=== PATIENT | female | born 1970 | race Caucasian/White ===

== ENCOUNTER 2017-03-14 15:28 | Outpatient (CLI) | payer OTHER ==
[~2017-03-14 15:28] MED LIST: B12-ACTIVE1 MG; BAYER ASPIRIN E81 M1 PO; BENADRYL25 MG PO; CELEXA20 MG PO; CLONAZEPAM2 MG PO; COMBIVIR1 TAB PO; COZAAR25 MG PO; CRESTOR20 MG PO; CYCLOBENZAPRINE10 MG PO; ESTER-C500 M1 PO; GABAPENTIN300 MG PO; GLUCOPHAGE850 MG PO; HUMALIN R100 UNITS/ SC; INDERAL EQUIVAL20 MG PO; LEVOTHYROXINE50 MCG PO; LITHIUM CARBON450 MG PO; LOFIBRA160 MG PO; METFORMIN HCL850 MG PO; NEURONTIN300 MG PO; NORTRIPTYLINE H25 MG PO; OXYCODONE/ACETA1 TA1 PO; PRILOSEC20 MG PO; PROAIR HFA IN; TRAZODONE HCL50 MG PO; VENLAFAXINE HC225 MG PO; VICODIN EQUIVAL1 TAB PO; VITAMIN D-31000 UNIT PO; [UNRECOGNIZED DRUG - OTHER] PO
--- NOTE | 2017-03-14 16:01 | DIAGNOSTIC IMAGING REPORT ---
PROCEDURE: XR CHEST 2 VIEW INDICATION: COUGH TECHNIQUE: PA and lateral views. COMPARISON: Chest 05/04/2016 FINDINGS: Lungs are clear. Heart and mediastinum are normal. Thorax is normal. IMPRESSION: 1. Negative chest.
== END 2017-03-14 23:00 ==
LOC: XR SRH 15:28
DX: R05 Cough (principal)

== ENCOUNTER 2017-03-27 13:01 | Outpatient (CLI) | payer OTHER | END 2017-03-27 23:00 | LOC: LAB SRH 13:01 | DX: R60.9 Edema, unspecified (principal); R18.8 Other ascites | CPT/HCPCS: 90074; 90100; 91556; 93140; 95059 ==

== ENCOUNTER 2017-03-27 15:54 | Outpatient (CLI) | payer OTHER ==
--- NOTE | 2017-03-27 17:55 | DIAGNOSTIC IMAGING REPORT ---
PROCEDURE: US ABDOMEN ULTRASOUND-COMPLETE INDICATION: LIVER, ASCITIES TECHNIQUE: Holden scale and color Doppler sonographic images of the abdomen were obtained. COMPARISON: CT abdomen/pelvis 03/31/2016. FINDINGS: Liver measures 21.6 cm with mildly heterogeneous appearance adjacent to the gallbladder suggestive of focal sparing. Normal gallbladder and CBD, 5 mm. Normal spleen and pancreas. Aorta and IVC are patent. Normal hepatopetal flow. Normal kidneys. Right kidney measures 13.4 cm and left kidney 13.7 cm. No ascites. IMPRESSION: 1. Hepatomegaly with findings suggestive of fatty infiltration. No ascites.
== END 2017-03-27 23:00 ==
LOC: US SRH 15:54
DX: R16.0 Hepatomegaly, not elsewhere classified (principal)

== ENCOUNTER 2017-04-02 10:14 | Outpatient (CLI) | payer OTHER ==
--- NOTE | 2017-04-02 14:48 | DIAGNOSTIC IMAGING REPORT ---
PROCEDURE: 2-D M-mode echo Doppler CLINICAL INDICATION: Edema TECHNIQUE: Standard 2-D M-mode echo Doppler technique COMPARISON: None FINDINGS: Left Ventricular dimension is normal with normal wall thickness ejection fraction 63% with normal contractility. Right ventricular size and function is normal RVSP is elevated at 38 mmHg. The aortic mitral tricuspid and pulmonic valves are all within normal limits with normal function. There are no abnormalities of the aortic order pericardium appreciated. IMPRESSION: Normal ventricular size and function ejection fraction 63% with normal contraction Elevated right heart pressure with RVSP 36 mmHg Normal function of all cardiac valves.
== END 2017-04-02 23:00 ==
LOC: US SRH 10:14
DX: R60.9 Edema, unspecified (principal)

== ENCOUNTER 2017-05-01 20:09 | Emergency (ER) | payer OTHER ==
--- NOTE | 2017-05-01 22:02 | ED NURSING NOTES ---
Clinical Report - Nurses [address] [place] [address] [place] [address] 05/01/2017 20:10 Patient: CONSTANTINE GENAO TRIAGE Triage time 20:19. Acuity: LEVEL 4. Chief Complaint: INJURY TO RIGHT ANKLE. 20:36. Alert. SEPSIS SCREEN: Sepsis Screen. Negative (no infection suspected/documented). MICAH COMA SCORE: [place] Coma Scale: 15- eyes open spontaneously (4); best verbal response- oriented x 4 (5); best motor response- obeys commands (6). --20:36 Israel Mills R.N. 20:19 05/01/17. BP: 114/66. HR: 79. RR: 26. O2 saturation: 98% on room air. Temp: 98.5 F (oral). Pain level now: 08/28. --20:36 Israel Mills R.N. Weight: 100.6 kg stated. Height/Length: 66 inches Per Patient. BMI: 35.8. --20:21 Israel Mills R.N. Medications Aspirin 81 mg, daily. ClonazePAM Oral (Tablet 2 mg) 1 tablet, daily. Vitamin B-12 Oral. --20:24 Israel Mills R.N. CloNIDine HCl Oral 0.1 mg, at bedtime. --20:24 Israel Mills R.N. Cetirizine HCl Oral 10 mg, daily. --20:25 Israel Mills R.N. Cyclobenzaprine HCl Oral 10 mg, as needed. --20:26 Israel Mills R.N. Vitamin D Oral 2000 Units, daily. --20:26 Israel Mills R.N. Emely-C Oral. --20:26 Israel Mills R.N. Fenofibrate Oral (Tablet 160 mg) 1 tablet, q AM. --20:26 Israel Mills R.N. Flonase Nasal (Suspension 50 mcg/act), daily. --20:26 Israel Mills R.N. Gabapentin Oral (Capsule 300 mg) 3 caps, 2x a day. --20:27 Israel Mills R.N. Haloperidol Oral 2 mg, 2x a day. --20:28 Israel Mills R.N. Levothyroxine Sodium Oral 75 mcg, daily. --20:28 Israel Mills R.N. [place] Carbonate Oral (Tablet Extended Release 450 mg) 2 tablets, q pm. --20:29 Israel Mills R.N. Losartan Potassium Oral (Tablet 25 mg) 1 tablet, daily. --20:29 Israel Mills R.N. Metformin HCl Oral 850 mg, 3x a day. --20:29 Israel Mills R.N. Montelukast Sodium Oral 10 mg, daily. --20:29 Israel Mills R.N. Morphine Sulfate ER Oral (Capsule Extended Release 24 Hour 30 mg) 1 capsule, 3 x daily. --20:30 Israel Mills R.N. Multi betic vitamins, 2x a day. --20:31 Israel Mills R.N. Nortriptyline HCl Oral 50 mg, daily. --20:31 Israel Mills R.N. Omeprazole Oral (Tablet Delayed Release 20 mg) 2 tablets, 1829. --20:31 Israel Mills R.N. OxyCODONE HCl Oral 10 mg, 4-5 x daily. --20:32 Israel Mills R.N. Propanalol 80 mg, 3x a day. --20:32 Israel Mills R.N. Rusuvastatin 20mg, daily. --20:33 Israel Mills R.N. Trazodone HCl Oral (Tablet 50 mg) 3 tablets, at bedtime. --20:33 Israel Mills R.N. U-500 insulin 5-15 units, before meals (Regular). --20:34 Israel Mills R.N. Venlafaxine HCl ER Oral (Tablet Extended Release 24 Hour 225 mg) 1 tablet, daily. --20:35 Israel Mills R.N. Allergies Codeine. PCN. --20:35 Israel Mills R.N. Medication/allergy information source: the patient (list). --20:36 Israel Mills R.N. History Arrived by private vehicle. Historian: patient. Accompanied by friend. Primary physician (Heriberto). This occurred yesterday. Occurred at home. Mechanism of injury: (Stomped foot on floor several times in anger). 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 PAST MEDICAL HX: Tetanus status: up-to-date. Immunizations: up-to-date. The patient has had a hysterectomy. SOCIAL HX: Current every day heavy tobacco smoker- 1 pack per day. No alcohol use or drug use. ABUSE ASSESSMENT: No report of abuse. FALL RISK ASSESSMENT: Fall risk assessment completed. No fall risk identified. NUTRITIONAL RISK ASSESSMENT: The nutritional risk assessment revealed no deficiencies. FUNCTIONAL ASSESSMENT: Functional assessment: no impairments noted. LEARNING NEEDS ASSESSMENT: The learning needs assessment revealed no barriers. SKIN INTEGRITY ASSESSMENT: Skin integrity risk assessment completed. No skin integrity risk identified. --20:36 Israel Mills R.N. PROBLEMS: Mental Illness. Depression. Chronic Back Pain. PTSD. Anxiety Reaction. Gastroesophageal Reflux. Hypercholesterolemia. Fibromyalgia. Diabetes Mellitus. Hypertension. --20:35 Israel Mills R.N. ADDITIONAL SURGERIES: Hysterectomy. Knee Surgery. Oophorectomy. Rt ankle and femur surgery. Tonsillectomy. --20:35 Israel Mills R.N. Interventions ID band on patient. To treatment room. --20:36 Israel Mills R.N. PHYSICAL ASSESSMENT 20:37. To room via wheelchair. GENERAL / NEURO / PSYCH: Oriented X 4. Alert. EXTREMITIES: Neuro-vascular status intact to the extremity. Right ankle: tenderness and swelling. SKIN: Skin intact. Skin is warm and dry. --20:37 Israel Mills R.N. NURSING PROGRESS NOTES 20:38. Cold pack applied (pt refused). Two patient identifiers checked. Call light placed in reach. Side rails up x 1. Bed placed in lowest position. Brakes of bed on. Patient ready for evaluation- chart flagged. --20:38 Israel Mills R.N. 20:41 BSC placed in room at pt request. --20:41 Israel Mills R.N. 20:46 Portable x-ray right ankle taken. --20:47 Israel Mills R.N. 21:30 05/01/2017 Toradol (Ketorolac Tromethamine) IM 60 mg given. Given in the left anterior lateral thigh. Allergies verified and confirmed 5 rights. --21:30 Kirsty Karimi R.N. Extremities: Neuro-vascular status intact to the extremities. 22:53. The patient is calm and resting quietly. GENERAL / NEURO / PSYCH: Alert. Oriented X 4. RESPIRATORY: No respiratory distress. SKIN: Skin is warm and dry. --22:59 Israel Mills R.N. 22:57. Fiberglass lower extremity splint applied to right ankle by tech. Distal pulses intact, sensation intact and motor within normal limits (Ami levine). --22:58 Israel Mills R.N. 23:00. Sugar tong fiberglass and fiberglass lower extremity splint applied to right ankle and foot. Distal pulses intact, sensation intact and motor within normal limits. --23:10 Estela Peralta ( Pt transported to her car via wheelchair.). --23:10 [facility] DISPOSITION / DISCHARGE Departure time: 22:54. Condition at departure: stable. ( Disc of x-rays given to pt to take for follow up with her ortho.). No learning barriers present. Discharge instructions provided and reviewed with the patient. Patient verbalized understanding. Written instructions provided in Armenian. ( Unable to locate crutches in the correct size for pt, [facility] tech looked in all places he was aware of. Patient reports having crutches at home that she will use.). The patient was discharged home and accompanied by enzyme chemist. She left the Emergency Department on crutches and via private vehicle. Lumber Bearer driving. FALL RISK ASSESSMENT: Fall risk assessment completed. No fall risk identified. --22:54 Israel Mills R.N. 22:23 05/01/17. BP: 114/64. HR: 78. RR: 16. O2 saturation: 98%. Pain level now: 02/26. --22:54 Israel Mills R.N. 22:57 Patient assited into and wheeled to parking lot by [facility] xray tech. --22:57 Israel Mills R.N. Locked/Released at 05/11/2017 19:31 by Israel Mills R.N.
--- NOTE | 2017-05-01 22:02 | ED ORDER SUMMARY ---
..... Patient: CONSTANTINE GENAO OrderSheet [facility] VisitID: [id number] [address] [place] [address] 46y, F Registration Date/Time: 05/01/2017 ORDER SHEET Weight: 100.6 kg (stated) Allergies: Codeine, PCN GENERAL ORDERS: Ankle 3 or 4V Right Urgent (20:38 05/01/2017 Alphonse R.N. per protocol) (Ack 20:40 Yunior ER Animal Husbandry Technician) (20:53 Jeanette) MEDICATION ORDERS: Toradol IM 60 mg (NOW) (21:21 05/01/2017 Reuben Mckeon) (Ack 21:28 Aguedas R.N.) (21:30 Aguedas R.N.) IV FLUIDS: ORDER SHEET NOTES: This document has not been locked and should not be saved in the medical record.
--- NOTE | 2017-05-01 22:02 | ED CLINICAL REPORT ---
Clinical Report - Physicians/Mid Levels [facility] [address] [place] [address] 05/01/2017 20:10 Patient: CONSTANTINE GENAO *This is a preliminary document and is subject to change Time Seen: 20:26; initial patient contact. Arrived- By private vehicle. Historian- patient. HISTORY OF PRESENT ILLNESS Chief Complaint: Injury to the right foot and right ankle. The injury happened yesterday. The patient sustained a moderate direct blow (stomping foot on the ground). Occurred at home. Patient is experiencing moderate pain. Patient denies injury to the head or neck. REVIEW OF SYSTEMS The patient complains of pain on weight bearing. No swelling, tingling or skin laceration. All systems otherwise negative, except as recorded above. PAST HISTORY Mental Illness. Depression. Chronic Back Pain. PTSD. Anxiety Reaction. Gastroesophageal Reflux. Hypercholesterolemia. Fibromyalgia. Diabetes Mellitus. Hypertension. ADDITIONAL SURGERIES: Hysterectomy. Knee Surgery. Oophorectomy. Rt ankle and femur surgery. Tonsillectomy. SOCIAL HISTORY Current every day smoker. No alcohol use or drug use. ADDITIONAL NOTES The nursing notes have been reviewed. PHYSICAL EXAM Vital Signs: 05/01/2017 20:19 BP: 114/66. HR: 79. RR: 26. O2 saturation: 98%. Temp: 98.5 F. Pain level now: 08/28. Have been reviewed. Blood pressure normal. Heart rate normal. Tachypneic. Temperature normal. Oxygen saturation normal. Appearance: Alert. Oriented X3. No acute distress. Skin: Skin intact. Skin warm and dry. Extremities: Right ankle: moderate tenderness and mild swelling. Limited ROM secondary to pain (diminished plantar flexion, dorsiflexion, inversion and eversion). Neurovascular intact distally. No erythema or deformity. Extremities otherwise negative. Neuro, Vascular and Tendons: Vascular status intact. Sensation intact. Motor intact. Tendon function intact. Gait: Gait not tested due to pain. Neuro: Oriented X 3. No motor deficit. LABS, X-RAYS, AND EKG Rt Ankle X-ray: No fracture. Normal alignment. (Surgical hardware in good allignment). Views: 3 view ankle series. Technique: good. The X-rays were independently viewed by me, interpreted by the radiologist and discussed with the radiologist. A comparison with prior films reveals that the findings are unchanged. Gavin Connolly Dr.
--- NOTE | 2017-05-01 22:02 | ED ORDER SUMMARY ---
..... Patient: CONSTANTINE GENAO OrderSheet [facility] VisitID: [id number] [address] [place] [address] 46y, F Registration Date/Time: 05/01/2017 ORDER SHEET Weight: 100.6 kg (stated) Allergies: Codeine, PCN GENERAL ORDERS: Ankle 3 or 4V Right Urgent (20:38 05/01/2017 Alphonse R.N. per protocol) (Ack 20:40 Yunior ER Artificial Fly Tier) (20:53 Jeanette) MEDICATION ORDERS: Toradol IM 60 mg (NOW) (21:21 05/01/2017 Reuben Mckeon) (Ack 21:28 Aguedas R.N.) (21:30 Aguedas R.N.) IV FLUIDS: ORDER SHEET NOTES: This document has not been locked and should not be saved in the medical record.
--- NOTE | 2017-05-01 22:02 | ED NURSING NOTES ---
Clinical Report - Nurses [place] [address] [place] [address] 05/01/2017 20:10 Patient: CONSTANTINE GENAO TRIAGE Triage time 20:19. Acuity: LEVEL 4. Chief Complaint: INJURY TO RIGHT ANKLE. 20:36. Alert. SEPSIS SCREEN: Sepsis Screen. Negative (no infection suspected/documented). MICAH COMA SCORE: [place] Coma Scale: 15- eyes open spontaneously (4); best verbal response- oriented x 4 (5); best motor response- obeys commands (6). --20:36 Israel Mills R.N. 20:19 05/01/17. BP: 114/66. HR: 79. RR: 26. O2 saturation: 98% on room air. Temp: 98.5 F (oral). Pain level now: 08/28. --20:36 Israel Mills R.N. Weight: 100.6 kg stated. Height/Length: 66 inches Per Patient. BMI: 35.8. --20:21 Israel Mills R.N. Medications Aspirin 81 mg, daily. ClonazePAM Oral (Tablet 2 mg) 1 tablet, daily. Vitamin B-12 Oral. --20:24 Israel Mills R.N. CloNIDine HCl Oral 0.1 mg, at bedtime. --20:24 Israel Mills R.N. Cetirizine HCl Oral 10 mg, daily. --20:25 Israel Mills R.N. Cyclobenzaprine HCl Oral 10 mg, as needed. --20:26 Israel Mills R.N. Vitamin D Oral 2000 Units, daily. --20:26 Israel Mills R.N. Emely-C Oral. --20:26 Israel Mills R.N. Fenofibrate Oral (Tablet 160 mg) 1 tablet, q AM. --20:26 Israel Mills R.N. Flonase Nasal (Suspension 50 mcg/act), daily. --20:26 Israel Mills R.N. Gabapentin Oral (Capsule 300 mg) 3 caps, 2x a day. --20:27 Israel Mills R.N. Haloperidol Oral 2 mg, 2x a day. --20:28 Israel Mills R.N. Levothyroxine Sodium Oral 75 mcg, daily. --20:28 Israel Mills R.N. [place] Carbonate Oral (Tablet Extended Release 450 mg) 2 tablets, q pm. --20:29 Israel Mills R.N. Losartan Potassium Oral (Tablet 25 mg) 1 tablet, daily. --20:29 Israel Mills R.N. Metformin HCl Oral 850 mg, 3x a day. --20:29 Israel Mills R.N. Montelukast Sodium Oral 10 mg, daily. --20:29 Israel Mills R.N. Morphine Sulfate ER Oral (Capsule Extended Release 24 Hour 30 mg) 1 capsule, 3 x daily. --20:30 Israel Mills R.N. Multi betic vitamins, 2x a day. --20:31 Israel Mills R.N. Nortriptyline HCl Oral 50 mg, daily. --20:31 Israel Mills R.N. Omeprazole Oral (Tablet Delayed Release 20 mg) 2 tablets, 1829. --20:31 Israel Mills R.N. OxyCODONE HCl Oral 10 mg, 4-5 x daily. --20:32 Israel Mills R.N. Propanalol 80 mg, 3x a day. --20:32 Israel Mills R.N. Rusuvastatin 20mg, daily. --20:33 Israel Mills R.N. Trazodone HCl Oral (Tablet 50 mg) 3 tablets, at bedtime. --20:33 Israel Mills R.N. U-500 insulin 5-15 units, before meals (Regular). --20:34 Israel Mills R.N. Venlafaxine HCl ER Oral (Tablet Extended Release 24 Hour 225 mg) 1 tablet, daily. --20:35 Israel Mills R.N. Allergies Codeine. PCN. --20:35 Israel Mills R.N. Medication/allergy information source: the patient (list). --20:36 Israel Mills R.N. History Arrived by private vehicle. Historian: patient. Accompanied by friend. Primary physician (Heriberto). This occurred yesterday. Occurred at home. Mechanism of injury: (Stomped foot on floor several times in anger). 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 PAST MEDICAL HX: Tetanus status: up-to-date. Immunizations: up-to-date. The patient has had a hysterectomy. SOCIAL HX: Current every day heavy tobacco smoker- 1 pack per day. No alcohol use or drug use. ABUSE ASSESSMENT: No report of abuse. FALL RISK ASSESSMENT: Fall risk assessment completed. No fall risk identified. NUTRITIONAL RISK ASSESSMENT: The nutritional risk assessment revealed no deficiencies. FUNCTIONAL ASSESSMENT: Functional assessment: no impairments noted. LEARNING NEEDS ASSESSMENT: The learning needs assessment revealed no barriers. SKIN INTEGRITY ASSESSMENT: Skin integrity risk assessment completed. No skin integrity risk identified. --20:36 Israel Mills R.N. PROBLEMS: Mental Illness. Depression. Chronic Back Pain. PTSD. Anxiety Reaction. Gastroesophageal Reflux. Hypercholesterolemia. Fibromyalgia. Diabetes Mellitus. Hypertension. --20:35 Israel Mills R.N. ADDITIONAL SURGERIES: Hysterectomy. Knee Surgery. Oophorectomy. Rt ankle and femur surgery. Tonsillectomy. --20:35 Israel Mills R.N. Interventions ID band on patient. To treatment room. --20:36 Israel Mills R.N. PHYSICAL ASSESSMENT 20:37. To room via wheelchair. GENERAL / NEURO / PSYCH: Oriented X 4. Alert. EXTREMITIES: Neuro-vascular status intact to the extremity. Right ankle: tenderness and swelling. SKIN: Skin intact. Skin is warm and dry. --20:37 Israel Mills R.N. NURSING PROGRESS NOTES 20:38. Cold pack applied (pt refused). Two patient identifiers checked. Call light placed in reach. Side rails up x 1. Bed placed in lowest position. Brakes of bed on. Patient ready for evaluation- chart flagged. --20:38 Israel Mills R.N. 20:41 BSC placed in room at pt request. --20:41 Israel Mills R.N. 20:46 Portable x-ray right ankle taken. --20:47 Israel Mills R.N. 21:30 05/01/2017 Toradol (Ketorolac Tromethamine) IM 60 mg given. Given in the left anterior lateral thigh. Allergies verified and confirmed 5 rights. --21:30 Kirsty Karimi R.N. Extremities: Neuro-vascular status intact to the extremities. 22:53. The patient is calm and resting quietly. GENERAL / NEURO / PSYCH: Alert. Oriented X 4. RESPIRATORY: No respiratory distress. SKIN: Skin is warm and dry. --22:59 Israel Mills R.N. 22:57. Fiberglass lower extremity splint applied to right ankle by tech. Distal pulses intact, sensation intact and motor within normal limits (Ami levine). --22:58 Israel Mills R.N. 23:00. Sugar tong fiberglass and fiberglass lower extremity splint applied to right ankle and foot. Distal pulses intact, sensation intact and motor within normal limits. --23:10 Estela Peralta ( Pt transported to her car via wheelchair.). --23[facility]10 [facility] DISPOSITION / DISCHARGE Departure time: 22:54. Condition at departure: stable. ( Disc of x-rays given to pt to take for follow up with her ortho.). No learning barriers present. Discharge instructions provided and reviewed with the patient. Patient verbalized understanding. Written instructions provided in Welsh. ( Unable to locate crutches in the correct size for pt, [facility] tech looked in all places he was aware of. Patient reports having crutches at home that she will use.). The patient was discharged home and accompanied by jet blade polisher. She left the Emergency Department on crutches and via private vehicle. Tonguer driving. FALL RISK ASSESSMENT: Fall risk assessment completed. No fall risk identified. --22:54 Israel Mills R.N. 22:23 05/01/17. BP: 114/64. HR: 78. RR: 16. O2 saturation: 98%. Pain level now: 02/26. --22:54 Israel Mills R.N. 22:57 Patient assited into and wheeled to parking lot by [facility] metallographic technician. --22:57 Israel Mills R.N. Locked/Released at 05/11/2017 19:31 by Israel Mills R.N.
--- NOTE | 2017-05-01 22:02 | ED CLINICAL REPORT ---
Clinical Report - Physicians/Mid Levels [facility] [address] [place] [address] 05/01/2017 20:10 Patient: CONSTANTINE GENAO *This is a preliminary document and is subject to change Time Seen: 20:26; initial patient contact. Arrived- By private vehicle. Historian- patient. HISTORY OF PRESENT ILLNESS Chief Complaint: Injury to the right foot and right ankle. The injury happened yesterday. The patient sustained a moderate direct blow (stomping foot on the ground). Occurred at home. Patient is experiencing moderate pain. Patient denies injury to the head or neck. REVIEW OF SYSTEMS The patient complains of pain on weight bearing. No swelling, tingling or skin laceration. All systems otherwise negative, except as recorded above. PAST HISTORY Mental Illness. Depression. Chronic Back Pain. PTSD. Anxiety Reaction. Gastroesophageal Reflux. Hypercholesterolemia. Fibromyalgia. Diabetes Mellitus. Hypertension. ADDITIONAL SURGERIES: Hysterectomy. Knee Surgery. Oophorectomy. Rt ankle and femur surgery. Tonsillectomy. SOCIAL HISTORY Current every day smoker. No alcohol use or drug use. ADDITIONAL NOTES The nursing notes have been reviewed. PHYSICAL EXAM Vital Signs: 05/01/2017 20:19 BP: 114/66. HR: 79. RR: 26. O2 saturation: 98%. Temp: 98.5 F. Pain level now: 08/28. Have been reviewed. Blood pressure normal. Heart rate normal. Tachypneic. Temperature normal. Oxygen saturation normal. Appearance: Alert. Oriented X3. No acute distress. Skin: Skin intact. Skin warm and dry. Extremities: Right ankle: moderate tenderness and mild swelling. Limited ROM secondary to pain (diminished plantar flexion, dorsiflexion, inversion and eversion). Neurovascular intact distally. No erythema or deformity. Extremities otherwise negative. Neuro, Vascular and Tendons: Vascular status intact. Sensation intact. Motor intact. Tendon function intact. Gait: Gait not tested due to pain. Neuro: Oriented X 3. No motor deficit. LABS, X-RAYS, AND EKG Rt Ankle X-ray: No fracture. Normal alignment. (Surgical hardware in good allignment). Views: 3 view ankle series. Technique: good. The X-rays were independently viewed by me, interpreted by the radiologist and discussed with the radiologist. A comparison with prior films reveals that the findings are unchanged. Gavin Connolly Dr.
--- NOTE | 2017-05-01 22:11 | DIAGNOSTIC IMAGING REPORT ---
PROCEDURE: XR ANKLE 3 OR 4 VIEWS - RIGHT INDICATION: TRAUMA/INJURY TECHNIQUE: Four views of the right ankle. COMPARISON: CT 02/08/2016 and plain films 07/06/2016 FINDINGS: Tibiotalar joint prosthesis. Syndesmotic fixation screw. Osseous fusion of the proximal syndesmosis with screw tracts. There is a transverse lucency through the distal aspect of the medial malleolus not previously present. There is collapse and partial fusion of the subtalar joints to moderate sized tibiotalar joint effusion is present. There is punctate debris dorsal to the talonavicular joint. Trace debris is seen in the soft tissues of the heel. Patchy decreased mineralization. IMPRESSION: 1. Probable nondisplaced transverse fracture through the medial malleolus. 2. Post tibia talar arthroplasty. 3. Partial fusion of the subtalar joints. 4. Tibiotalar joint effusion. 5. Decreased mineralization
--- NOTE | 2017-05-11 19:31 | ED MAR SUMMARY ---
..... Medication Administration Record [facility] [address] [place] [address] Patient: CONSTANTINE GENAO Visit ID: [id number] 46y, F Weight: 100.6 kg Height/Length: 66 in BMI: 35.8 ALLERGIES: Codeine, PCN Given 21:30 05/01/2017 Kirsty Karimi R.N. Medication Administered: TORADOL [IM] (KETOROLAC TROMETHAMINE), Dose: 60 mg IM. Medication Ordered: Toradol IM 60 mg (NOW).
--- NOTE | 2017-05-11 19:31 | ED MAR SUMMARY ---
..... Medication Administration Record [facility] [address] [place] [address] Patient: CONSTANTINE GENAO Visit ID: [id number] 46y, F Weight: 100.6 kg Height/Length: 66 in BMI: 35.8 ALLERGIES: Codeine, PCN Given 21:30 05/01/2017 Kirsty Karimi R.N. Medication Administered: TORADOL [IM] (KETOROLAC TROMETHAMINE), Dose: 60 mg IM. Medication Ordered: Toradol IM 60 mg (NOW).
--- NOTE | 2017-05-11 19:31 | ED DISCHARGE INSTRUCTIONS ---
Patient: CONSTANTINE GENAO General Instructions [facility] VisitID: [id number] [address] [place] [address] 46y, F Registration Date/Time: 05/01/2017 Closed non-displaced right medial malleolus fracture. INSTRUCTIONS Use crutches until released. Wear fiberglass splint until released. No weight bearing on right leg until released. Your Current Medications: CONTINUE TAKING THE FOLLOWING MEDICATIONS: Aspirin : 81 mg daily. Cetirizine HCl Oral : 10 mg daily. ClonazePAM Oral : Tablet 2 mg, 1 tablet daily. CloNIDine HCl Oral : 0.1 mg at bedtime. Cyclobenzaprine HCl Oral : 10 mg, prn. Emely-C Oral. Fenofibrate Oral : Tablet 160 mg, 1 tablet q AM. Flonase Nasal : Suspension 50 mcg/act, daily. Gabapentin Oral : Capsule 300 mg, 3 caps 2x a day. Haloperidol Oral : 2 mg 2x a day. Levothyroxine Sodium Oral : 75 mcg daily. [place] Carbonate Oral : Tablet Extended Release 450 mg, 2 tablets q pm. Losartan Potassium Oral : Tablet 25 mg, 1 tablet daily. Metformin HCl Oral : 850 mg 3x a day. Montelukast Sodium Oral : 10 mg daily. Morphine Sulfate ER Oral : Capsule Extended Release 24 Hour 30 mg, 1 capsule 3 x daily. Multi betic vitamins* : 2x a day. Nortriptyline HCl Oral : 50 mg daily. Omeprazole Oral : Tablet Delayed Release 20 mg, 2 tablets 1830. OxyCODONE HCl Oral : 10 mg 4-5 x daily. Propanalol* : 80 mg 3x a day. Rusuvastatin* : 20mg daily. Trazodone HCl Oral : Tablet 50 mg, 3 tablets at bedtime. U-500 insulin* : 5-15 units before meals, Regular. Venlafaxine HCl ER Oral : Tablet Extended Release 24 Hour 225 mg, 1 tablet daily. Vitamin B-12 Oral. Vitamin D Oral : 2000 Units daily. Follow-up: Follow up with your doctor in about two days. Call for an appointment. Blood pressure screening was not performed during this visit because the patient has an active diagnosis of hypertension. ADDITIONAL INFORMATION Fracture:Ankle You have a break (fracture) of the ankle. This causes local pain, swelling and sometimes bruising. A fracture is treated with a splint or cast or special boot. It will take about 4-6 weeks for the fracture to heal. Surgery may be needed to fix severe injuries. Home Care: You will be given a splint, cast or boot to prevent movement at the ankle joint. Unless you were told otherwise, use crutches or a walker and do not bear weight on the injured leg until cleared by your doctor to do so. (Crutches and walkers can be rented at many pharmacies and surgical/orthopedic supply stores). Do not put weight on a splint; it will break. Keep your leg elevated to reduce pain and swelling. When sleeping, place a pillow under the injured leg. When sitting, support the injured leg so it is level with your waist. This is very important during the first 48 hours. Apply an ice pack (ice cubes in a plastic bag, wrapped in a towel) over the injured area for 20 minutes every 1-2 hours the first day. You can place the ice pack directly over the splint/cast. Continue with ice packs 3-4 times a day for the next two days, then as needed for the relief of pain and swelling. Keep the cast/splint/boot completely dry at all times. Bathe with your cast/splint/boot out of the water, protected with a large plastic bag, rubber-banded at the top end. If a boot or fiberglass cast/splint gets wet, you can dry it with a hair-dryer. You may use acetaminophen (Tylenol) or ibuprofen (Motrin, Advil) to control pain, unless another pain medicine was prescribed. [ NOTE : If you have chronic liver or kidney disease or ever had a stomach ulcer or GI bleeding, talk with your doctor before using these medicines.] Follow Up with your doctor in one week, or as advised by our staff, to be sure the bone is healing properly. If you were given a splint, it may be changed to a cast at your follow-up visit. [NOTE: A radiologist will review any X-rays that were taken. We will notify you of any new findings that may affect your care.] Get Prompt Medical Attention If Any Of The Following Occur: The plaster cast or splint becomes wet or soft The fiberglass cast or splint remains wet for more than 24 hours Increased tightness or pain under the cast or splint Toes become swollen, cold, blue, numb or tingly Splint Care, Fiberglass The following will help you care for your splint: It will take up totwo hours for your fiber glass splint to fully harden; therefore, do notapply any pressure on it during that time or else it may break. To prevent swelling under the splint, for thefirst 48 hours: If the splint is on yourarm, keep it in a sling or raised to shoulder level when sitting or standing; rest it on your chest or on a pillow at your side when lying down. If the splint is on yourfoot, keep it propped up above the level of your waist when sitting or lying. Avoid crutch walking as much as possible during this time. Keep the splint/cast dry at all times. Bathe with your splint/cast well out of the water, protected with a large plastic bag, rubber-banded at the top end. If a fiberglass cast or splint gets wet, you can dry it with a hair-dryer. Follow-up care Follow up with your doctor or this facility as advised. When to seek medical care Get prompt medical attention if any of the following occur: Bad odor from the splint or wound-fluid stains the splint The splint cracks or remains wet over 24 hours Increasing tightness or pressure under the splint Fingers or toes become swollen, cold, blue, numb or tingly Increased pain under the splint You have been given the following additional information: Fracture, Ankle (General) Splint Care, Fiberglass No weight bearing on right leg until released. (Electronically signed by Gavin Connolly Dr. 05/01/2017 22:11)
--- NOTE | 2017-05-11 19:31 | ED MED RECONCILIATION SUMMARY ---
Patient: CONSTANTINE GENAO Medication Reconciliation Report [facility] VisitID: [id number] [address] [place] [address] 46y, F Registration Date/Time: 05/01/2017 Weight: 100.6 kg Height/Length: 66 in. BMI: 35.8 ALLERGIES: Codeine, PCN The patient's Home Medications are listed below: CONTINUE TAKING THE FOLLOWING MEDICATIONS: Aspirin 81 mg, daily Cetirizine HCl Oral 10 mg, daily ClonazePAM Oral (2 mg) 1 tablet, daily CloNIDine HCl Oral 0.1 mg, at bedtime Cyclobenzaprine HCl Oral 10 mg Emely-C Oral Fenofibrate Oral (160 mg) 1 tablet, q AM Flonase Nasal (50 mcg/act), daily Gabapentin Oral (300 mg) 3 caps, 2x a day Haloperidol Oral 2 mg, 2x a day Levothyroxine Sodium Oral 75 mcg, daily [place] Carbonate Oral (450 mg) 2 tablets, q pm Losartan Potassium Oral (25 mg) 1 tablet, daily Metformin HCl Oral 850 mg, 3x a day Montelukast Sodium Oral 10 mg, daily Morphine Sulfate ER Oral (30 mg) 1 capsule, 3 x daily Multi betic vitamins, 2x a day Nortriptyline HCl Oral 50 mg, daily Omeprazole Oral (20 mg) 2 tablets, 1830 OxyCODONE HCl Oral 10 mg, 4-5 x daily Propanalol 80 mg, 3x a day Rusuvastatin 20mg, daily Trazodone HCl Oral (50 mg) 3 tablets, at bedtime U-500 insulin 5-15 units, before meals, Regular Venlafaxine HCl ER Oral (225 mg) 1 tablet, daily Vitamin B-12 Oral Vitamin D Oral 2000 Units, daily The source(s) of the original Home Medication information: patient list The following Medications were given to the patient in the Emergency Department: Toradol [IM] IM 60 mg, administered: 05/01/2017 9:30:00 PM The following Medications were prescribed to the patient: None.
--- NOTE | 2017-05-11 19:31 | ED MED RECONCILIATION SUMMARY ---
Patient: CONSTANTINE GENAO Medication Reconciliation Report [facility] VisitID: [id number] [address] [place] [address] 46y, F Registration Date/Time: 05/01/2017 Weight: 100.6 kg Height/Length: 66 in. BMI: 35.8 ALLERGIES: Codeine, PCN The patient's Home Medications are listed below: CONTINUE TAKING THE FOLLOWING MEDICATIONS: Aspirin 81 mg, daily Cetirizine HCl Oral 10 mg, daily ClonazePAM Oral (2 mg) 1 tablet, daily CloNIDine HCl Oral 0.1 mg, at bedtime Cyclobenzaprine HCl Oral 10 mg Emely-C Oral Fenofibrate Oral (160 mg) 1 tablet, q AM Flonase Nasal (50 mcg/act), daily Gabapentin Oral (300 mg) 3 caps, 2x a day Haloperidol Oral 2 mg, 2x a day Levothyroxine Sodium Oral 75 mcg, daily [place] Carbonate Oral (450 mg) 2 tablets, q pm Losartan Potassium Oral (25 mg) 1 tablet, daily Metformin HCl Oral 850 mg, 3x a day Montelukast Sodium Oral 10 mg, daily Morphine Sulfate ER Oral (30 mg) 1 capsule, 3 x daily Multi betic vitamins, 2x a day Nortriptyline HCl Oral 50 mg, daily Omeprazole Oral (20 mg) 2 tablets, 1830 OxyCODONE HCl Oral 10 mg, 4-5 x daily Propanalol 80 mg, 3x a day Rusuvastatin 20mg, daily Trazodone HCl Oral (50 mg) 3 tablets, at bedtime U-500 insulin 5-15 units, before meals, Regular Venlafaxine HCl ER Oral (225 mg) 1 tablet, daily Vitamin B-12 Oral Vitamin D Oral 2000 Units, daily The source(s) of the original Home Medication information: patient list The following Medications were given to the patient in the Emergency Department: Toradol [IM] IM 60 mg, administered: 05/01/2017 9:30:00 PM The following Medications were prescribed to the patient: None.
== END 2017-05-01 22:54 | disposition home or self-care (01) ==
LOC: ED SRH 20:09
DX: S82.54XA Nondisplaced fracture of medial malleolus of right tibia, initial encounter for closed fracture (principal); W22.09XA Striking against other stationary object, initial encounter; Y93.9 Activity, unspecified; Y92.009 Unspecified place in unspecified non-institutional (private) residence as the place of occurrence of the external cause; Y99.9 Unspecified external cause status; I10 Essential (primary) hypertension; E11.9 Type 2 diabetes mellitus without complications; Z79.899 Other long term (current) drug therapy; K21.9 Gastro-esophageal reflux disease without esophagitis; F17.210 Nicotine dependence, cigarettes, uncomplicated